=== PATIENT | female | born 1975 | race Asian ===

== ENCOUNTER 2017-02-21 21:42 | Emergency (ER) | payer MEDICAID ==
[~2017-02-21] VITALS: Ht 170.2 cm; Wt 120.5 kg
[2017-02-21] MEDS ORDERED: SODIUM CHLORIDE FLUSH 10ML SYR IVF ONE (22:30)
[2017-02-21] MEDS ORDERED: SODIUM CHLORIDE 0.9% 1,000ML IVBOLUS ONE (22:30)
[2017-02-21] MEDS ORDERED: DIPHENHYDRAMINE 50 MG/ML, 1ML IVPush ONE (22:30)
[2017-02-21] MEDS ORDERED: METOCLOPRAMIDE 5 MG/ML, 2ML IVPush ONE (22:30)
[2017-02-21] MEDS ORDERED: DIPHENHYDRAMINE 50 MG/ML, 1ML ONE (22:38)
[2017-02-21] MEDS ORDERED: METOCLOPRAMIDE 5 MG/ML, 2ML ONE (22:38)
[2017-02-22 00:46] VITALS: BP 130/74
== END 2017-02-22 01:00 | disposition home or self-care (01) ==
LOC: ED 23:59
DX: G43.009 Migraine without aura, not intractable, without status migrainosus (principal); E11.9 Type 2 diabetes mellitus without complications
CPT/HCPCS: 82962; 96361; 96374; 96375; 99285; J1200; J2765; J7030

== ENCOUNTER 2018-01-21 20:07 | Emergency (ER) | payer SELFPAY ==
[~2018-01-21] VITALS: Ht 167.6 cm; Wt 114.0 kg
[2018-01-21 20:26] VITALS: BP 153/85
[2018-01-21] MEDS ORDERED: DEXAMETHASONE 4 MG TABLET PO ONE (20:33)
[2018-01-21] MEDS ORDERED: DEXAMETHASONE 4 MG TABLET ONE (20:44)
== END 2018-01-21 21:15 | disposition home or self-care (01) ==
LOC: ED 21:10
DX: J02.9 Acute pharyngitis, unspecified (principal); E11.9 Type 2 diabetes mellitus without complications
CPT/HCPCS: 99283

== ENCOUNTER 2018-03-25 20:43 | Emergency (ER) | payer MEDICAID ==
[~2018-03-25] VITALS: Ht 167.6 cm; Wt 114.4 kg
[2018-03-25 20:48] VITALS: BP 154/75
[2018-03-25] MEDS ORDERED: DEXAMETHASONE 4 MG TABLET ONE (21:55)
[2018-03-25] MEDS ORDERED: DEXAMETHASONE 4 MG TABLET PO ONE (22:00)
== END 2018-03-25 22:36 | disposition home or self-care (01) ==
LOC: ED 21:09
DX: J02.8 Acute pharyngitis due to other specified organisms (principal); B97.89 Other viral agents as the cause of diseases classified elsewhere; E11.9 Type 2 diabetes mellitus without complications; J45.909 Unspecified asthma, uncomplicated; Z88.8 Allergy status to other drugs, medicaments and biological substances; Z88.6 Allergy status to analgesic agent
CPT/HCPCS: 71046; 87081; 87880; 99285

== ENCOUNTER 2018-06-03 20:33 | Emergency (ER) | payer MEDICAID ==
[~2018-06-03] VITALS: Ht 167.6 cm; Wt 117.1 kg
[2018-06-03 21:28] LABS: RAPID INFLUENZA A Negative (Negative); RAPID INFLUENZA B Negative (Negative)
[2018-06-03 21:47] VITALS: BP 138/81
== END 2018-06-03 21:49 | disposition home or self-care (01) ==
LOC: ED 21:13
DX: J00 Acute nasopharyngitis [common cold] (principal); E11.9 Type 2 diabetes mellitus without complications; G43.909 Migraine, unspecified, not intractable, without status migrainosus; J45.909 Unspecified asthma, uncomplicated; Z87.09 Personal history of other diseases of the respiratory system
CPT/HCPCS: 71046; 87081; 87147; 87400; 87880; 99284

== ENCOUNTER 2020-05-04 10:08 | Emergency (ER) | payer MEDICAID ==
[~2020-05-04] VITALS: Ht 170.2 cm; Wt 106.0 kg
[2020-05-04] MEDS ORDERED: ALBUTEROL/IPRATROPIUM 2.5MG/0.5MG, 3 ML ONE (10:45)
[2020-05-04] MEDS ORDERED: ALBUTEROL SULFATE 2.5 MG/3 ML ONE (10:45)
--- NOTE | 2020-05-04 10:51 | NUR ---
PATIENT PLACED ON 6L NC IMMEDIATELY FOR POTENTIAL CARBON MONOXIDE INHALATION
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
--- NOTE | 2020-05-04 10:52 | NUR ---
PERIODS OF TRIGEMINY NOTED ON NOTCHING MACHINE OPERATOR, BUT NOT CONTINUOUS.
[2020-05-04] MEDS ORDERED: ALBUTEROL SULFATE 2.5MG/0.5ML NPPB ONE (11:00)
[2020-05-04] MEDS ORDERED: ALBUTEROL/IPRATROPIUM 2.5MG/0.5MG, 3 ML NEB ONE (11:00)
--- NOTE | 2020-05-04 11:00 | NUR ---
BREATHING TX STARTED
--- NOTE | 2020-05-04 11:19 | NUR ---
BREATHING TX COMPLETED, VENOUS BLOOD APPEARS VERY DARK, PLACED ON NRB AT 14L FOR POTENTIAL CO INHALATION
[2020-05-04] MEDS ORDERED: CEFTRIAXONE PMX 1GM/50ML 50 ML ONE (11:52)
[2020-05-04] MEDS ORDERED: CEFTRIAXONE PMX 1GM/50ML 50 ML IV ONE (12:00)
[2020-05-04] MEDS ORDERED: SODIUM CHLORIDE 0.9% 1,000ML IVBOLUS ONE (12:00)
[2020-05-04 12:03] LABS: BASOPHILS % (AUTO) 1 % (0-1); EOSINOPHILS % (AUTO) 1 % (1-7); LYMPHOCYTES % (AUTO) 27 % (22-44); MEAN CORPUSCULAR HEMOGLOBIN 28.6 pg (27.0-34.8); MEAN CORPUSCULAR HGB CONC 32.8 g/dL (32.4-35.8); MEAN PLATELET VOLUME 7.4 fL (7.4-10.4); MONOCYTES % (AUTO) 5 % (2-9); NEUTROPHILS % (AUTO) 67 % (42-75); PLATELET COUNT 391 x10^3/uL (130-400); RED BLOOD COUNT 4.55 x10^6/uL (3.82-5.3); RED CELL DISTRIBUTION WIDTH 12.6 % (9.6-15.2)
[2020-05-04 12:04] LABS: ANION GAP 7 mmol/L (5-15); CALCIUM 9.1 mg/dL (8.5-10.1); CHLORIDE 105 mmol/L (98-107); CREATININE 1.12 mg/dL (0.55-1.02)
[2020-05-04 12:07] LABS: MD NO
--- NOTE | 2020-05-04 12:11 | NUR ---
PATIENT BECAME TACHYPNIC AT 40 BREATHS PER MIN, LUNG SOUNDS STILL CLEAR, NSR WITH FREQUENT PVC'S PRESENT ON MONITOR, REPEAT EKG DONE, PATIENT STATES "MY CHEST FEELS HEAVY". ERP TO ROOM
[2020-05-04] MEDS ORDERED: LORazepam 2 MG/ML, 1ML ONE (12:14)
[2020-05-04 12:21] LABS: TROPONIN I < 0.015 ng/mL (0.000-0.045)
--- NOTE | 2020-05-04 12:24 | NUR ---
IV ABX STARTED, BLOOD CULTURES X2 DRAWN PRIOR TO ABX ADMIN
[2020-05-04] MEDS: SODIUM CHLORIDE 0.9% 1,000ML IVBOLUS ONE ×2 (12:27→12:30)
[2020-05-04] MEDS ORDERED: LORazepam 2 MG/ML, 1ML IVPush ONE (12:30)
--- NOTE | 2020-05-04 12:57 | NUR ---
PATIENT AMBULATORY TO RESTROOM WITH STEADY GAIT
--- NOTE | 2020-05-04 14:07 | NUR ---
REPORT TO AMARILYS HARKINS. PLAN OF CARE DISCUSSED.
--- NOTE | 2020-05-04 14:10 | NUR ---
REPORT RECIEVED FROM RADHA PANDA, ASSUMED CARE OF PT AT THIS TIME.
[2020-05-04 14:15] VITALS: BP 109/64
== END 2020-05-04 15:10 | disposition home or self-care (01) ==
LOC: ED 12:24
DX: J45.41 Moderate persistent asthma with (acute) exacerbation (principal); A41.9 Sepsis, unspecified organism; J15.9 Unspecified bacterial pneumonia; I10 Essential (primary) hypertension; E11.9 Type 2 diabetes mellitus without complications; E78.5 Hyperlipidemia, unspecified; F17.200 Nicotine dependence, unspecified, uncomplicated
CPT/HCPCS: 36415; 71045; 80048; 82375; 82962; 83605; 84145; 84484; 85025; 85379; 87040; 93005; 94640; 96361; 96365; 96375; 99285; J0696; J2060; J7030; J7512

== ENCOUNTER 2020-05-29 14:45 | Emergency (ER) | payer MEDICAID ==
[~2020-05-29] VITALS: Ht 170.2 cm; Wt 115.4 kg
[2020-05-29 14:50] VITALS: BP 110/57
[2020-05-29 15:40] LABS: BASOPHILS % (AUTO) 1 % (0-1); EOSINOPHILS % (AUTO) 2 % (1-7); LYMPHOCYTES % (AUTO) 28 % (22-44); MEAN CORPUSCULAR HEMOGLOBIN 29.2 pg (27.0-34.8); MEAN CORPUSCULAR HGB CONC 33.2 g/dL (32.4-35.8); MEAN PLATELET VOLUME 7.5 fL (7.4-10.4); MONOCYTES % (AUTO) 6 % (2-9); NEUTROPHILS % (AUTO) 63 % (42-75); PLATELET COUNT 409 x10^3/uL (130-400); RED BLOOD COUNT 4.67 x10^6/uL (3.82-5.3); RED CELL DISTRIBUTION WIDTH 13.1 % (9.6-15.2)
[2020-05-29 15:46] LABS: MD NO
[2020-05-29 15:47] LABS: ALBUMIN 3.7 g/dL (3.4-5.0); ANION GAP 8 mmol/L (5-15); CALCIUM 8.8 mg/dL (8.5-10.1); CHLORIDE 104 mmol/L (98-107); CREATININE 0.87 mg/dL (0.55-1.02)
== END 2020-05-29 19:42 | disposition home or self-care (01) ==
LOC: ED 18:40
DX: B34.9 Viral infection, unspecified (principal); R00.0 Tachycardia, unspecified; R06.02 Shortness of breath; F17.200 Nicotine dependence, unspecified, uncomplicated; I10 Essential (primary) hypertension; E11.9 Type 2 diabetes mellitus without complications; J45.909 Unspecified asthma, uncomplicated; G43.909 Migraine, unspecified, not intractable, without status migrainosus
CPT/HCPCS: 36415; 71045; 80048; 82040; 85025; 93005; 99285

== ENCOUNTER 2020-07-28 04:06 | Emergency (ER) | payer MEDICAID ==
[~2020-07-28] VITALS: Ht 167.6 cm; Wt 115.2 kg
[2020-07-28 04:08] VITALS: BP 134/65
--- NOTE | 2020-07-28 04:11 | NUR ---
pt bib remsa for L sided dental pain. mild swelling noted. pt seen at earlier today and prescribed abx, amoxicillin. pt resting on aubrie, nad, placed on spo2/bp monitoring, provided warm blanket for comfort, jakob jenkins at for eval and poc. wctm.
[2020-07-28] MEDS ORDERED: LIDOCAINE-MPF 1%, 5ML ONE (04:13)
[2020-07-28] MEDS ORDERED: BUPIVACAINE 0.25% ONE (04:13)
[2020-07-28] MEDS ORDERED: BUPIVACAINE 0.25% INFIL ONE (04:30)
[2020-07-28] MEDS ORDERED: LIDOCAINE 1%, 2ML INFIL ONE (04:30)
--- NOTE | 2020-07-28 04:34 | NUR ---
Patient given discharge instructions and they have confirmed that they understand the instructions. Patient ambulatory with steady gait. NAD, PROVIDED DENTAL REFERRAL LIST. NO PERSONAL BELONGINGS LEFT IN ROOM AFTER DC. PT DENIES ADDITIONAL QUESTIONS AND NEEDS AT THIS TIME.
== END 2020-07-28 04:35 | disposition home or self-care (01) ==
LOC: ED 04:30
DX: K08.89 Other specified disorders of teeth and supporting structures (principal); I10 Essential (primary) hypertension; E11.9 Type 2 diabetes mellitus without complications; J45.909 Unspecified asthma, uncomplicated; F17.210 Nicotine dependence, cigarettes, uncomplicated
CPT/HCPCS: 64400; 99284; 99406

== ENCOUNTER 2020-10-03 19:43 | Emergency (ER) | payer MEDICAID ==
[~2020-10-03] VITALS: Ht 170.2 cm; Wt 117.4 kg
--- NOTE | 2020-10-03 20:03 | NUR ---
PT CAME IN CO "PALPITATIONS IN MY CHEST. ON FRIDAY I WENT TO FOR NAUSEA AND VOMITTING AND SINCE THEN I HAVE FELT PALPITATIONS IN MY CHEST. ITS NOT REALLY A CHEST PAIN" EKG COMPLETE. MD IS BEDSIDE FOR ASSESSMENT. CONNECTED TO ALL MONITORING EQUIPMENT. BLANKET PROVIDED
--- NOTE | 2020-10-03 20:29 | NUR ---
LABS DRAWN. IV FLUIDS INFUSING
[2020-10-03] MEDS ORDERED: MAGNESIUM SULFATE/D5W 100 ML IVPB ONE (20:30)
[2020-10-03] MEDS ORDERED: SODIUM CHLORIDE 0.9% 1,000ML IVBOLUS ONE (20:30)
[2020-10-03] MEDS ORDERED: SODIUM CHLORIDE FLUSH 10ML SYR IVF ONE (20:30)
--- NOTE | 2020-10-03 20:41 | NUR ---
PT IN BED WITH NO SIGNS OR SYMPTOMS OF ACUTE DSITRESS NOTED RESPIRATIONS EVEN AND UNLABORED, SATTING WELL ON ROOM AIR. IVF INFUSING WELL AT LAC. PT ALERT AND AWAKE ANSWERING QUESTIONS APPROPRIATELY, DENIES PAIN REPORTS PALPITATIONS IN CHEST. MED LIST OBTAINED. PT UPDATED ON PLAN OF CARE. PT VERBALIZES UNDERSTANDING AND AGREEMENT, BED RAILS UP BILATERALLY CALL LIGHT WITHIN REACH, LIGHTS LOW IN ROOM FOR COMFORT. PT VERBALIZES APPRECIATION FOR CARES AND CONCERN.
[2020-10-03] MEDS ORDERED: TOPI25TA8 PO (20:45)
[2020-10-03] MEDS ORDERED: PIOG15TA69 PO (20:45)
[2020-10-03] MEDS ORDERED: LISI40TA9 PO (20:45)
[2020-10-03] MEDS ORDERED: INSU100I34 SQ (20:45)
[2020-10-03] MEDS ORDERED: ATOR20TA86 PO (20:45)
[2020-10-03] MEDS ORDERED: HYDR25TA6 PO (20:45)
[2020-10-03 20:59] LABS: BASOPHILS % (AUTO) 0 % (0-1); EOSINOPHILS % (AUTO) 2 % (1-7); LYMPHOCYTES % (AUTO) 24 % (22-44); MEAN CORPUSCULAR HEMOGLOBIN 29.1 pg (27.0-34.8); MEAN PLATELET VOLUME 7.7 fL (7.4-10.4); MONOCYTES % (AUTO) 5 % (2-9); NEUTROPHILS % (AUTO) 69 % (42-75); PLATELET COUNT 405 x10^3/uL (130-400); RED BLOOD COUNT 4.46 x10^6/uL (3.82-5.3); RED CELL DISTRIBUTION WIDTH 13.3 % (9.6-15.2)
[2020-10-03 21:00] LABS: MD NO
[2020-10-03 21:11] LABS: ALBUMIN 3.5 g/dL (3.4-5.0); ANION GAP 6 mmol/L (5-15); CALCIUM 8.9 mg/dL (8.5-10.1); CHLORIDE 104 mmol/L (98-107)
[2020-10-03] MEDS ORDERED: MAGNESIUM SULFATE/D5W 100 ML ONE (21:12)
[2020-10-03 21:22] LABS: TROPONIN I < 0.015 ng/mL (0.000-0.045)
[2020-10-03 22:07] VITALS: BP 135/76
== END 2020-10-03 22:53 | disposition home or self-care (01) ==
LOC: ED 20:07
DX: K52.9 Noninfective gastroenteritis and colitis, unspecified (principal); M94.0 Chondrocostal junction syndrome [Tietze]; I49.3 Ventricular premature depolarization; R07.89 Other chest pain; R06.02 Shortness of breath; R11.2 Nausea with vomiting, unspecified; E11.9 Type 2 diabetes mellitus without complications; I10 Essential (primary) hypertension; R00.2 Palpitations
CPT/HCPCS: 36415; 71045; 80048; 82040; 83735; 84443; 84484; 85025; 93005; 96365; 99285; J7030

== ENCOUNTER 2020-12-27 13:11 | Emergency (ER) | payer MEDICAID ==
[~2020-12-27] VITALS: Ht 170.2 cm; Wt 114.4 kg
[~2020-12-27 13:11] MED LIST: ATOR20TA86 PO; HYDR25TA6 PO; INSU100I34 SQ; LISI40TA9 PO; PIOG15TA69 PO; TOPI25TA8 PO
--- NOTE | 2020-12-27 14:19 | NUR ---
PT AMBULATORY TO BR. URINE COLLECTED/SENT TO LAB. CALL LIGHT WITHIN REACH.
[2020-12-27 14:47] LABS: BASOPHILS % (AUTO) 1 % (0-1); EOSINOPHILS % (AUTO) 2 % (1-7); LYMPHOCYTES % (AUTO) 21 % (22-44); MEAN CORPUSCULAR HGB CONC 33.2 g/dL (32.4-35.8); MEAN PLATELET VOLUME 7.7 fL (7.4-10.4); MONOCYTES % (AUTO) 5 % (2-9); NEUTROPHILS % (AUTO) 72 % (42-75); PLATELET COUNT 405 x10^3/uL (130-400); RED BLOOD COUNT 4.54 x10^6/uL (3.82-5.3); RED CELL DISTRIBUTION WIDTH 13.5 % (9.6-15.2)
[2020-12-27 14:50] VITALS: BP 108/46
[2020-12-27 14:54] LABS: ANION GAP 5 mmol/L (5-15); CHLORIDE 106 mmol/L (98-107)
[2020-12-27 14:55] LABS: CREATININE 0.64 mg/dL (0.55-1.02)
[2020-12-27 14:55] LABS: MICROSCOPIC NOT IND
--- NOTE | 2020-12-27 15:13 | NUR ---
ALL RESULTS BACK, PT FOR RECHECK.
--- NOTE | 2020-12-27 15:58 | NUR ---
PT SLEEPING AT TIME OF DC. AMBULATORY TO DC DESK.
== END 2020-12-27 16:00 | disposition home or self-care (01) ==
LOC: ED 14:29
DX: E11.65 Type 2 diabetes mellitus with hyperglycemia (principal); M54.42 Lumbago with sciatica, left side; D72.828 Other elevated white blood cell count; I10 Essential (primary) hypertension
CPT/HCPCS: 36415; 80048; 81003; 85025; 99283